=== PATIENT | female | born 1995 | race African-American/Black ===

== ENCOUNTER 2016-06-07 13:12 | Emergency (ER) | payer MEDICAID, OTHER ==
[~2016-06-07] VITALS: Ht 172.7 cm; Wt 63.0 kg
[~2016-06-07 13:12] MED LIST: LEVO175T2 PO; TYLE3 PO
[2016-06-07 13:16] VITALS: BP 103/64; PULSE 114; RESP 29; TEMP 98.4; O2SAT 97
[2016-06-07] MEDS ORDERED: LEVO112T2 PO (13:51)
--- NOTE | 2016-06-07 14:21 | PD ---
HPI Chief Complaint: ENT Complaint Time Seen by Provider: 14:20 Travel History International Travel<30 days: No Contact w/Intl Traveler<30days: No Traveled to known affect area: No History of Present Illness HPI 20-year-old female presents to the emergency department for evaluation of sore throat that started yesterday, but worsened this morning. She denies any fevers or chills. She does report associated dry cough. She denies any chest pain or shortness breath. No abdominal pain. No nausea or vomiting. She has no other complaints. Patient has no chronic medical problems and takes no prescribed medications. PFSH Past Medical History Cardiovascular Problems: No COPD: No Coronary Artery Disease: No Diabetes: No Diminished Hearing: No Endocrine: Yes (HYPOTHYROIDISM) Immunizations Current: Yes LMP: 06/04/16 Past Surgical History Abdominal Surgery: Yes (HERNIA SURGERY A BABY) Other Surgery: Yes Social History Alcohol Use: No Tobacco Use: No Substance Use: No Allergies-Medications (Allergen,Severity, Reaction): Coded Allergies: No Known Allergies (Unverified , 06/07/16) Reported Meds & Prescriptions Reported Meds & Active Scripts Active Reported Levothyroxine (Levothyroxine Sodium) 112 Mcg Tab 112 Mcg PO DAILY Review of Systems Except as stated in HPI: all other systems reviewed are Neg Physical Exam Narrative GENERAL: Well-developed well-nourished female patient, ambulatory. Afebrile. SKIN: Warm and dry. HEAD: Normocephalic. Atraumatic. ENT: Mucosa pink and moist. Bilateral tonsils are erythematous without exudates. No uvular edema. No uvular, palatal, or tonsillar deviation. Airway patent. Nasal turbinates appear normal without nasal blood, purulent drainage or septal hematoma. Bilateral tympanic membranes are clear without erythema or perforation. EYES: No scleral icterus. No injection or drainage. NECK: Supple, trachea midline. No JVD or lymphadenopathy. CARDIOVASCULAR: Regular rate and rhythm without murmurs, gallops, or rubs. RESPIRATORY: Breath sounds equal bilaterally. No accessory muscle use. Lungs sounds are clear to auscultation. GASTROINTESTINAL: Abdomen soft, non-tender, nondistended. MUSCULOSKELETAL: No cyanosis, or edema. Data Data Last Documented VS Vital Signs Date Time Temp Pulse Resp B/P Pulse Ox O2 Delivery O2 Flow Rate FiO2 06/07/16 14:32 107 20 98 Room Air 06/07/16 13:16 98.4 103/64 Orders Group A Rapid Strep Screen (06/07/16 14:19) Strep Culture (Group A) (06/07/16 14:25) MDM Medical Decision Making Medical Screen Exam Complete: Yes Emergency Medical Condition: Yes Medical Record Reviewed: Yes Differential Diagnosis Strep pharyngitis versus viral pharyngitis versus viral URI Narrative Course 20-year-old female presents to the emergency department for evaluation of sore throat for 2 days. Strep swab is ordered and pending. Strep swab is negative. Symptoms are consistent with a viral pharyngitis. She is instructed to warm salt water gargles, Tylenol/Motrin [id number] as needed. She is to follow-up with a primary care physician. Patient verbalizes agreement and understanding. The patient was discharged in stable condition with instructions, including return instructions and follow up instructions. Diagnosis Primary Impression: Viral pharyngitis Referrals: Primary Care Physician call for appointment Patient Instructions: General Instructions, Pharyngitis (ED) Additional Instructions: Warm salt water gargles. Tylenol/ibuprofen for pain. Follow-up with your primary care physician. Return to the emergency department for any acute worsening of symptoms. Med/Other Pt SpecificInfo: No Change to Meds Disposition: 01 DISCHARGE HOME Condition: Stable Kristan Zuniga Jun 07, 2016 14:21
[2016-06-07 14:32] VITALS: PULSE 107; RESP 20; O2SAT 98
== END 2016-06-07 15:45 | disposition home or self-care (01) ==
LOC: NEPB 13:12
DX: J02.9 Acute pharyngitis, unspecified (principal)
CPT/HCPCS: 87081; 87880; 99283